=== PATIENT | male | born 1980 | race Caucasian/White ===

== ENCOUNTER 2020-04-13 16:43 | Outpatient (CLI) | payer BC, SELFPAY ==
--- NOTE | 2020-04-13 | XRR_ITS ---
PROCEDURE INFORMATION: Exam: XR Chest, 2 Views Exam date and time: 04/13/2020 6:05 PM Age: 40 years old Clinical indication: Type not specified; Patient HX: High BP; Chest pain x 1 week; Short of breath; Additional info: SOB TECHNIQUE: Imaging protocol: XR of the chest Views: 2 views. COMPARISON: CR Chest 1 [place] [id number] 10/07/2017 9:25 PM FINDINGS: Lungs: The lungs are clear bilaterally. Pulmonary vasculature within normal limits. Pleural space: No visible pneumothorax or pleural effusion. Heart/Mediastinum: Cardiomediastinal silhouette contour within normal limits. Bones/joints: No emergent findings identified. XR/XR chest 2V* [id number] IMPRESSION: 1. No radiographic findings of acute cardiopulmonary disease.
[2020-04-13 18:24] LABS: Add Urine Microscopic? NO
[2020-04-13 18:52] LABS: Eosinophils 2 %; Lymphocytes 37 %; Platelet Estimate Normal (Normal); Segmented Neutrophils 54 %; Total Cells Counted 100 (0-100)
[2020-04-13 18:58] LABS: Bilirubin Urine Neg (NEGATIVE); Blood Urine Neg (Negative); Glucose Urine UA Norm (Normal); Ketones Urine Negative (Negative); Leukocyte Esterase Urine Negative (Negative); Nitrate Urine Negative (Negative); Protein Urine Neg (Negative); Urine Appearance Clear (CLEAR); Urine Color Yellow (Yellow); Urobilinogen Urine Neg (Negative); pH Urine 7 (5-7)
[2020-04-13 19:02] LABS: Alanine Aminotransferase 23 U/L (0-41); Albumin Level 4.7 g/dL (3.5-5.2); Alkaline Phosphatase 70 IU/L (40-130); Aspartate Amino Transferase 20 U/L (0-40); Blood Urea Nitrogen 5 mg/dL (6-20); Calcium 9.2 mg/dL (8.5-10.5); Carbon Dioxide 27 mmol/L (22-29); Chloride 101 mmol/L (98-107); Free T4 Free Thyroxine 1.29 ng/dL (0.82-1.77); Globulin 2.3 g/dL (1.3-4.6); Glomerular Filtration Rate 92.5 mL/min (90-130); Glucose 100 mg/dL (65-115); Osmolality Calculated 282 mOsm/kg (285-295); Sodium 138 mmol/L (136-145); Thyroid Stimulating Hormone 2.61 uIU/mL (0.27-4.20); Total Bilirubin 0.5 mg/dL (0.15-1.2)
[2020-04-14 04:08] LABS: Absolute Eosinophils 0.1 10^3/cmm (0.0-0.7); Absolute Neutrophil 5.3 10^3/cmm (1.4-6.5); Absolute Segmented Neutrophil 5.2 10/cmm (1.6-7.1); Band Neutrophils Absolute 0.1 10^3/cmm (0.0-1.2); Hematocrit 40.8 % (42.0-52.0); Hemoglobin 13.1 g/dL (11.7-16.6); Mean Corpuscular HGB Conc 32.1 g/dL (30.0-36.0); Mean Corpuscular Hemoglobin 28.5 pg (28.0-34.0); Mean Corpuscular Volume 88.7 fL (80-94); Mean Platelet Volume 11.3 fL (7.4-10.4); Monocytes Absolute 0.6 10^3/cmm (0.1-0.6); Platelet Count 373 10^3/cmm (130-400); Red Cell Distribution Width 14.2 % (12.1-15.1); White Blood Count 9.6 10^3/uL (4.0-10.0)
== END 2020-04-13 16:44 | disposition home or self-care (01) ==
LOC: RAD 16:48
PROVIDERS: Family Provider Family Medicine; Visit Provider Nurse Practitioner Family
DX: R07.89 Other chest pain (principal); I10 Essential (primary) hypertension; R06.02 Shortness of breath
CPT/HCPCS: 36415; 71046; 80053; 81003; 84439; 84443; 85007; 85027

== ENCOUNTER 2021-04-15 11:47 | Outpatient (CLI) | payer OTHER, SELFPAY ==
[2021-04-15 12:01] VITALS: BMI 28.8
--- NOTE | 2021-04-15 12:02 | ECG_ITS ---
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 Interpretive Statements NAME OF STUDY: TREADMILL STRESS TEST INDICATION: Chest Pain PROCEDURE: At the baseline, the patient's blood pressure was with a heart rate of. The baseline electrocardiogram showed normal sinus rhythm with normal ST-Ts. Poor R wave progression.. The patient exercised for 12 minutes and 36 seconds on a standard Joaquin protocol. Patient attained a maximum heart rate of 171 beats per minute( 96 % of the maximum predicted heart rate) with a blood pressure at the peak exercise of 220/50 mm Hg. The EKG at the peak exercise revealed no significant changes. Patient did not have any chest pain or any significant cardiac arrhythmias with the exercise During the recovery phase, there were no new changes. Blood pressure at the end of the recovery phase was 166/95 mm Hg with a heart rate of 83 per minute. CONCLUSION: 1. No significant EKG changes with the treadmill exercise 2. No exercise-induced chest pain or cardiac arrhythmia 3. Good exercise tolerance, attained a maximum of 17.2 METs No significant coronary ischemia, based on the above findings Electronically Signed On 04-15-2021 16:55:19 CDT by Tulio Pappas M.D. [email or web address]
[2021-04-15 12:41] VITALS: BP 166/95; PULSE 83
== END 2021-04-15 11:48 | disposition home or self-care (01) ==
PROVIDERS: PCP Nurse Practitioner Family; Visit Provider Nurse Practitioner Family
DX: R07.9 Chest pain, unspecified (principal)
CPT/HCPCS: 93017

== ENCOUNTER → 2022-10-19 13:16 | Outpatient (BNVA) | payer OTHER, SELFPAY | PROVIDERS: PCP Nurse Practitioner Family; Visit Provider Registered Nurse Neonatal Intensive Care | DX: S82.431A Displaced oblique fracture of shaft of right fibula, initial encounter for closed fracture (principal); W20.8XXA Other cause of strike by thrown, projected or falling object, initial encounter | CPT/HCPCS: 73610 ==

== ENCOUNTER → 2022-11-06 14:28 | Outpatient (BNVA) | payer OTHER, SELFPAY | PROVIDERS: PCP Nurse Practitioner Family; Visit Provider Podiatrist Foot & Ankle Surgery | DX: S82.401A Unspecified fracture of shaft of right fibula, initial encounter for closed fracture (principal); X58.XXXA Exposure to other specified factors, initial encounter; M25.471 Effusion, right ankle | CPT/HCPCS: 73610 ==

== ENCOUNTER 2022-11-20 06:00 | Outpatient (CLI) | payer OTHER, SELFPAY | END 2022-11-20 06:01 | disposition home or self-care (01) | LOC: SPT 12-04 12:57 | PROVIDERS: PCP Nurse Practitioner Family; Visit Provider Podiatrist Foot & Ankle Surgery | DX: Z46.89 Encounter for fitting and adjustment of other specified devices (principal); S82.831D Other fracture of upper and lower end of right fibula, subsequent encounter for closed fracture with routine healing; X58.XXXD Exposure to other specified factors, subsequent encounter | CPT/HCPCS: 97760; L1902 ==

== ENCOUNTER → 2022-11-20 13:07 | Outpatient (BNVA) | payer OTHER, SELFPAY | PROVIDERS: PCP Nurse Practitioner Family; Visit Provider Podiatrist Foot & Ankle Surgery | DX: S82.401A Unspecified fracture of shaft of right fibula, initial encounter for closed fracture (principal); X58.XXXA Exposure to other specified factors, initial encounter; M25.471 Effusion, right ankle | CPT/HCPCS: 73610 ==

== ENCOUNTER → 2022-12-11 14:52 | Outpatient (BNVA) | payer OTHER, SELFPAY | PROVIDERS: PCP Nurse Practitioner Family; Visit Provider Podiatrist Foot & Ankle Surgery | DX: S82.401A Unspecified fracture of shaft of right fibula, initial encounter for closed fracture (principal); X58.XXXA Exposure to other specified factors, initial encounter; M25.471 Effusion, right ankle | CPT/HCPCS: 73610 ==

== ENCOUNTER → 2023-11-24 13:46 | Outpatient (BNVA) | payer OTHER, SELFPAY | PROVIDERS: PCP Nurse Practitioner Family; Visit Provider Emergency Medicine | DX: M25.461 Effusion, right knee (principal) | CPT/HCPCS: 73562 ==

== ENCOUNTER 2025-02-10 18:21 | Emergency (ER) | payer OTHER, SELFPAY ==
[2025-02-10 18:24] VITALS: BP 184/104; PULSE 63; RESP 16; TEMP 36.6; O2SAT 98; BMI 28.8
--- NOTE | 2025-02-10 18:30 | XRR_ITS ---
PROCEDURE INFORMATION: Exam: XR Chest Exam date and time: 02/10/2025 6:59 PM Age: 44 years old Clinical indication: Pain; Chest pressure; Additional info: Cp TECHNIQUE: Imaging protocol: Radiologic exam of the chest. Views: 1 view. COMPARISON: CR XR chest 2V* [id number] 04/13/2020 6:01 PM FINDINGS: Lungs: Unremarkable. No consolidation. Pleural spaces: Unremarkable. No pleural effusion. No pneumothorax. Heart/Mediastinum: Unremarkable. No cardiomegaly. Bones/joints: Unremarkable. XR/XR chest 1V portable [id number] IMPRESSION: No acute findings.
--- NOTE | 2025-02-10 18:35 | CTR_ITS ---
PROCEDURE INFORMATION: Exam: CT Head Without Contrast Exam date and time: 02/10/2025 6:43 PM Age: 44 years old Clinical indication: Stroke-like symptoms; Lt lower extremity weakness; Additional info: Symptoms of acute stroke TECHNIQUE: Imaging protocol: Computed tomography of the head without contrast. Radiation optimization: All CT scans at this facility use at least one of these dose optimization techniques: automated exposure control; mA and/or kV adjustment per patient size (includes targeted exams where dose is matched to clinical indication); or iterative reconstruction. Other technique: STROKE PROTOCOL was implemented. COMPARISON: No relevant prior studies available. RADIATION DOSE METRICS: Total DLP (mGy-cm): 1070.29 FINDINGS: Brain: No hemorrhage. Small focus of encephalomalacia left temporal lobe. No mass effect. Cerebral ventricles: No ventriculomegaly. Paranasal sinuses: Visualized sinuses are unremarkable. No fluid levels. Mastoid air cells: Visualized mastoid air cells are well aerated. Bones: Unremarkable. No acute fracture. Soft tissues: Unremarkable. CT/CT head thrombolytic [id number] IMPRESSION: No acute intracranial abnormality. ASSESSMENT: ASPECTS ([place] Stroke Program Early CT Score) is 10.
--- NOTE | 2025-02-10 18:36 | ED_ITS ---
HPI - Chest Pain 2 General: Chief Complaint: Chest Pain Stated Complaint: Possible Stroke Time Seen by Provider: 02/10/25 18:30 Source: patient Mode of arrival: ambulatory Limitations: no limitations History of Present Illness: 44-year-old male who states that he star nataly having a slight headache today at 330 states started having some numbness down his left side at that time as well. He has no slurred speech no vision deficits slight drift to his left leg States his headache has improved he has had some slight chest pains as well. Associated symptoms: Deny abdominal pain, dyspnea, fever(s), nausea or vomiting Related Data Previous Rx's ?Medication ?Instructions ?Recorded ASO brace #1 ea 11/20/22 ibuprofen 800 mg tablet 800 mg PO Q8H PRN pain #30 t abs 11/24/23 aspirin 81 mg tablet 81 mg PO DAILY #30 tabs 01/16 04/10 atorvastatin 80 mg tablet (Lipitor) 80 mg PO DAILY #30 tabs 02/10/25 metoprolol succinate 25 mg capsule 25 mg PO DAILY #30 ea 02/10/25 sprinkle, ext. release 24 hr Allergies Allergy/AdvReac Type Severity Reaction Status Date / Time No Known Allergies Allergy Verified 11/24/23 13:18 Review of Systems 2 Const: Denies: fever(s), chills, body aches or change in appetite ENMT: Denies: throat pain or dental pain Card: Denies: chest pain Resp: Denies: dyspnea GI: Denies: abdominal pain, nausea, vomiting or diarrhea Musc: Denies: neck pain or back pain Skin/Breast: Denies: rash Neuro: Denies: headache(s) Course 2 Vital Signs: Vital signs: Vital Signs Temperature 97.8 F 02/10/25 18:24 Pulse Rate 62 02/10/25 20:00 Respiratory Rate 16 02/10/25 19:16 Blood Pressure 154/102 02/10/25 20:00 Pulse Oximetry 97 02/10/25 20:00 Oxygen Delivery Me thod Room Air 02/10/25 20:00 MDM - Chest Pain Medical Decision Making Patient presents here with some paresthesias he is able to ambulate some slight leg weakness since all resolved he feels much improved he was hypertensive blood pressures improved as well did offer admission he states he feels much improved does not want to be admitted we will start him on a statin along with aspirin and metoprolol he is to follow-up return if worsening head CT here is normal he understands agrees to plan Medical Records I reviewed the patient's medical records. Lab Data I reviewed the patient's lab results. 02/10/25 18:40 02/10/25 18:40 Radiology Impressions Chest X-Ray 02/10/25 18:30 IMPRESSION: No acute findings. Head CT 02/10/25 18:35 IMPRESSION: No acute intracranial abnormality. ASSESSMENT: ASPECTS ([place] Stroke Program Early CT Score) is 10. ADDENDUM: 02/10/25 1900 COMMENT: THIS REPORT CONTAINS FINDINGS THAT MAY BE CRITICAL TO PATIENT CARE. The exam findings were verbally communicated by me to Dr. Stahl via telephone conference at 6:58 PM CDT on 02/10/2025. The findings were acknowledged and understood. Laboratory Results WBC 10.26 10^3/uL (3.29-11.43) 02/10/25 18:40 RBC 4.75 10^6/uL (3.85-5.65) 02/10/25 18:40 Hgb 13.50 g/dL (11.27-16.99) 02/10/25 18:40 Hct 40.8 % (37-53) 02/10/25 18:40 MCV 85.9 fl (82-101) 02/10/25 18:40 MCH 28.4 pg (27-33) 02/10/25 18:40 MCHC 33.1 g/dL (30-55) 02/10/25 18:40 RDW 13.8 % (12.1-15.1) 02/10/25 18:40 Plt Count 329 10^3/cmm (157-399) 02/10/25 18:40 MPV 9.8 fL (7.4-10.4) 02/10/25 18:40 Neut % (Auto) 49.7 % 02/10/25 18:40 Lymph % (Auto) 38.4 % 02/10/25 18:40 [place] % (Auto) 7.0 % 02/10/25 18:40 Eos % (Auto) 3.3 % 02/10/25 18:40 Baso % (Auto) 1.4 % 02/10/25 18:40 Neut # (Auto) 5.10 10^3/uL (1.8-7.7) 02/10/25 18:40 Lymph # (Auto) 3.9 10^3/uL (0.8-4.8) 02/10/25 18:40 [place] # (Auto) 0.7 10^3/uL (0.2-0.9) 02/10/25 18:40 Eos # (Auto) 0.3 10^3/uL (0.0-0.8) 02/10/25 18:40 Baso # (Auto) 0.1 10^3/uL (0.0-0.1) 02/10/25 18:40 Nucleated RBC % (auto) 0 % 02/10/25 18:40 Nucleated RBCs # 0.0 /100WBC 02/10/25 18:40 PT 11.90 SECONDS (12.1-14.9) L 02/10/25 18:40 INR 0.82 (0.8-1.2) 02/10/25 18:40 APTT 26.0 SECONDS (23.9-36.7) 02/10/25 18:40 Sodium 139 mmol/L (136-145) 02/10/25 18:40 Potassium 4.1 mmol/L (3.5-5.1) 02/10/25 18:40 Chloride 102 mmol/L (98-107) 02/10/25 18:40 Carbon Dioxide 22 mmol/L (22-29) 02/10/25 18:40 Anion Gap 19.1 (5-19) H 02/10/25 18:40 BUN 13 mg/dL (6-20) 02/10/25 18:40 Creatinine 1.0 mg/dL (0.7-1.2) 02/10/25 18:40 GFR Calculation 80.4 mL/min (90-130) L 02/10/25 18:40 Glucose 90 mg/dL (65-115) 02/10/25 18:40 POC Glucose 97 mg/dL (70-110) 02/10/25 19:21 Calculated Osmolality 288 mOsm/kg (285-295) 02/10/25 18:40 Calcium 9.1 mg/dL (8.5-10.5) 02/10/25 18:40 Total Bilirubin 0.3 mg/dL (0.15-1.2) 02/10/25 18:40 AST 21 U/L (0-40) 02/10/25 18:40 ALT 23 U/L (0-41) 02/10/25 18:40 Alkaline Phosphatase 97 U/L (40-130) 02/10/25 18:40 Troponin T Baseline 7 ng/L (0-15) 02/10/25 18:40 Troponin T 120 Minute < 6.0 ng/L (0-15) 02/10/25 20:45 Total Protein 6.7 g/dL (6.6-8.7) 02/10/25 18:40 Albumin 4.5 g/dL (3.5-5.2) 02/10/25 18:40 Globulin 2.2 g/dL (1.3-4.6) 02/10/25 18:40 Lipase 21 U/L (13-60) 02/10/25 18:40 Urine Color Yellow (Yellow) 02/10/25 19:00 Urine Appearance Clear (CLEAR) 02/10/25 19:00 Urine pH 7.5 (5-7) 02/10/25 19:00 Ur Specific [place] 1.010 (1.005-1.030) 02/10/25 19:00 Urine Protein Negative (Negative) 02/10/25 19:00 Urine Glucose (UA) Negative (Normal) 02/10/25 19:00 Urine Ketones Negative (Negative) 02/10/25 19:00 Urine Blood Negative (Negative) 02/10/25 19:00 Urine Nitrate Negative (Negative) 02/10/25 19:00 Urine Bilirubin Negative (Negative) 02/10/25 19:00 Urine Urobilinogen 0.2 mg/dL (Negative) 02/10/25 19:00 Ur Leukocyte Esterase Negative (Negative) 02/10/25 19:00 Urine RBC 0-2 /hpf (0-2) 02/10/25 19:00 Urine WBC 0-5 /hpf (0-5) 02/10/25 19:00 Ur Squamous Epith Cells 0-5 /hpf (0-5) 02/10/25 19:00 Amorphous Sediment Not Reportable 02/10/25 19:00 Urine Bacteria None seen /hpf (NONE) 02/10/25 19:00 Hyaline Casts 0-4 /lpf H 02/10/25 19:00 Urine Opiates Screen Negative ng/mL (Negative) 02/10/25 19:00 Ur Barbiturates Screen Negative ng/mL (Negative) 02/10/25 19:00 Ur Phencyclidine Scrn Negative ng/mL (Negative) 02/10/25 19:00 Ur Amphetamines Screen Negative ng/mL (Negative) 02/10/25 19:00 U Benzodiazepines Scrn Negative ng/mL (Negative) 02/10/25 19:00 Urine Cocaine Screen Negative ng/mL (Negative) 02/10/25 19:00 U Marijuana (THC) Screen Negative ng/mL (Negative) 02/10/25 19:00 All radiology interpretation(s) finalized by discharge Discharge Plan Discharge Patient Disposition: Home Clinical Impression: Atypical chest pain, Hypertension, Paresthesia Condition: Stable Prescriptions: New metoprolol succinate 25 mg capsule,sprinkle,ER 24hr 25 mg PO DAILY Qty: 30 0RF atorvastatin [Lipitor] 80 mg tablet 80 mg PO DAILY Qty: 30 0RF aspirin 81 mg tablet 81 mg PO DAILY Qty: 30 0RF No Action (DME) ASO brace See Rx Instructions .Route .MEDSUPPLY Qty: 1 0RF Rx Instructions: As directed ibuprofen 800 mg tablet 800 mg PO Q8H PRN (Reason: pain) Qty: 30 0RF Discharge Orders: Discharge ED (Routine); Ordered 02/10/25 Ordered By: Parth Ross Referrals: Janiya Schroeder MD [Physician, Neurology] - 4-7 days Discharge Diet: Advance as tolerated Discharge Activity: Resume usual activity Patient Instructions: Paresthesia (ED), Hypertension (ED) Print Language: Venezuelan Coding Level of Care Code ED [place] [employer] for [place] Fwd NIH stroke score NIHSS Level Of Consciousness - 1a: 0 Level Of Consciousness Questions - 1b: Both Correct Best Gaze - 2: Normal Visual Heller - 3: No Visual Loss Facial Palsy - 4: Normal Motor Arm Right - 5: No Drift Motor Arm Left - 5: No Drift Motor Leg Right - 6: No Drift Motor Leg Left - 6: Drift Limb Ataxia - 7: Absent Sensory - 8: Mild To Moderate Loss Best Language - 9: No Aphasia Dysarthia - 10: Normal Extinction And Inattention - 11: 0
[2025-02-10 18:51] LABS: Basophils # 0.1 10^3/uL (0.0-0.1); Basophils % 1.4 %; Eosinophils # 0.3 10^3/uL (0.0-0.8); Eosinophils % 3.3 %; Hematocrit 40.8 % (37-53); Lymphocytes # 3.9 10^3/uL (0.8-4.8); Lymphocytes % 38.4 %; Mean Corpuscular HGB Conc 33.1 g/dL (30-55); Mean Corpuscular Hemoglobin 28.4 pg (27-33); Mean Corpuscular Volume 85.9 fl (82-101); Mean Platelet Volume 9.8 fL (7.4-10.4); Monocytes # 0.7 10^3/uL (0.2-0.9); Neutrophils % 49.7 %; Nucleated Red Blood Cells % 0 %; Platelet Count 329 10^3/cmm (157-399); Red Blood Count 4.75 10^6/uL (3.85-5.65); Red Cell Distribution Width 13.8 % (12.1-15.1); White Blood Count 10.26 10^3/uL (3.29-11.43)
--- NOTE | 2025-02-10 18:55 | ECG_ITS ---
[facility] Test Date: 2025-02-10 Pat Name: Dontrell Britton Department: Room: Gender: Male Technical Solutions Engineer: : 1980 Requested By: Parth Ross Order Number: [id number] Reading MD: Measurements Intervals [place] Rate: 64 P: 26 RI: 194 QRS: 67 QRSD: 97 T: 16 QT: 389 QTc: 403 Interpretive Statements SINUS RHYTHM MINIMAL VOLTAGE CRITERIA FOR LVH, CONSIDER NORMAL VARIANT [MEETS CRITERIA IN ONE OF: R(aVL), S(V1), R(V5), R(V5/V6)+S(V1)] [id number] [id number]
[2025-02-10 18:59] VITALS: BP 161/118; PULSE 64; RESP 18; O2SAT 98
[2025-02-10 19:03] LABS: INR 0.82 (0.8-1.2)
[2025-02-10 19:09] LABS: Alanine Aminotransferase 23 U/L (0-41); Albumin Level 4.5 g/dL (3.5-5.2); Alkaline Phosphatase 97 U/L (40-130); Aspartate Amino Transferase 21 U/L (0-40); Blood Urea Nitrogen 13 mg/dL (6-20); Calcium 9.1 mg/dL (8.5-10.5); Carbon Dioxide 22 mmol/L (22-29); Chloride 102 mmol/L (98-107); Creatinine Clr Calc Pharmacy 98.5867; Globulin 2.2 g/dL (1.3-4.6); Glomerular Filtration Rate 80.4 mL/min (90-130); Glucose 90 mg/dL (65-115); Lipase 21 U/L (13-60); Osmolality Calculated 288 mOsm/kg (285-295); Sodium 139 mmol/L (136-145); Total Bilirubin 0.3 mg/dL (0.15-1.2); Total Protein 6.7 g/dL (6.6-8.7)
[2025-02-10 19:11] LABS: Troponin(5th) Baseline 7 ng/L (0-15)
[2025-02-10 19:13] LABS: Anion Gap 19.1 (5-19); Potassium 4.1 mmol/L (3.5-5.1)
[2025-02-10 19:16] VITALS: BP 130/108; PULSE 53; RESP 16; O2SAT 99
[2025-02-10] MEDS: aspirin 81 mg Chew Tablet 324 MG PO (19:17)
[2025-02-10 19:20] LABS: Bilirubin Urine Negative (Negative); Blood Urine Negative (Negative); Glucose Urine UA Negative (Normal); Ketones Urine Negative (Negative); Leukocyte Esterase Urine Negative (Negative); Nitrate Urine Negative (Negative); Protein Urine Negative (Negative); Urine Appearance Clear (CLEAR); Urine Color Yellow (Yellow); Urobilinogen Urine 0.2 mg/dL (Negative); pH Urine 7.5 (5-7)
[2025-02-10 19:25] LABS: Add Urine Microscopic? YES; Bacteria Urine None Seen /hpf; Hyaline Casts Urine 0-4 /lpf; RBC Urine 0-2 /hpf (0-2); Squamous Epithelial Cell Urine 0-5 /hpf (0-5); WBC Urine 0-5 /hpf (0-5)
[2025-02-10 19:27] LABS: Amphetamines Screen Urine Negative (Negative); Barbiturates Screen Urine Negative (Negative); Benzodiazepines Screen Urine Negative (Negative); Cocaine Screen Urine Negative (Negative); Opiate Screen Urine Negative (Negative); PCP Screen Urine Negative (Negative); THC Screen Urine Negative (Negative)
[2025-02-10 19:27] LABS: Glucose Point of Care 97 mg/dL (70-110)
[2025-02-10 20:00] VITALS: BP 154/102; PULSE 62; O2SAT 97
--- NOTE | 2025-02-10 20:30 | ECG_ITS ---
[facility] Date: 2025-02-10 Pat Name: Dontrell Britton Department: Room: Gender: Male Sanitation Supervisor: : 1980 Requested By: Parth Ross Order Number: [id number] Reading MD: Measurements Intervals [place] Rate: 58 P: 26 MI: 199 QRS: 41 QRSD: 94 T: 42 QT: 394 QTc: 388 Interpretive Statements SINUS BRADYCARDIA [id number] [email or web address]
[2025-02-10 21:07] LABS: Troponin 5 2HR < 6.0 ng/L (0-15)
[2025-02-10 21:17] LABS: Troponin 5 2HR Delta -1.00001 ABS# (0-10)
[2025-02-10 21:24] VITALS: BP 160/105; PULSE 62; O2SAT 98
--- NOTE | 2025-02-12 08:26 | DCPLANNER ---
message sent to neuro for er f/u
== END 2025-02-10 21:25 | disposition home or self-care (01) ==
PROVIDERS: Emergency Provider Emergency Medicine
DX: R07.89 Other chest pain (principal); I10 Essential (primary) hypertension
CPT/HCPCS: 36415; 36416; 70450; 71045; 80053; 80306; 81001; 82962; 83690; 84484; 85025; 85610; 85730; 93005; 99285; J9999